=== PATIENT | male | born 1950 | race Caucasian/White ===

== ENCOUNTER 2016-10-05 09:04 | Emergency (ER) | payer MEDICARE ==
[2016-10-05] MEDS ORDERED: ACETAMINOPHEN IV (For NPO) 1,000 MG in EMPTY BAG 1 BAG IVPB STA (09:21)
[2016-10-05] MEDS ORDERED: KETOROLAC 30 MG/ML 1 ML VIAL IVP STA (09:21)
[2016-10-05] MEDS ORDERED: SODIUM CHLORIDE 0.9% 1,000 ML IV STA ×2 (09:21)
[2016-10-05] MEDS ORDERED: SODIUM CHLORIDE 0.9% 500 ML IV STA (09:21)
[2016-10-05 09:50] LABS: Basophils % (A) 1 %; CH 29.1; CHCM 35.9; Eosinophils % (A) 0 %; HCT 45.1 % (39.0-53.0); HDW 2.99; HGB 15.6 gm/dL (13.0-17.5); Luc # (Auto) 0.18; Luc % (Auto) 4; Lymphocytes # (A) 0.4 k/uL (1.0-4.8); Lymphocytes % (A) 8 %; MCH 28.2 pg (25.0-35.0); MCHC 34.6 g/dL (31.0-37.0); MCV 81.4 fL (80.0-100.0); Mean Platelet Volume 7.6; Monocytes # (A) 0.7 k/uL (0-1.0); Monocytes % (A) 14 %; Neutrophils % (A) 75 %; RBC 5.54 m/uL (4.30-5.90); RDW 13.8 % (11.5-15.5); WBC 5.3 k/uL (3.8-10.6); WBC (Perox) 5.24
--- NOTE | 2016-10-05 09:51 | ED ---
General Adult HPI - General Chief complaint: Chest Pain Stated complaint: chest pain Time Seen by Provider: 10/05/16 09:18 Source: patient, RN notes reviewed, old records reviewed Mode of arrival: wheelchair Limitations: no limitations - History of Present Illness Initial comments: This is a 65-year-old male the ER for evaluation. Patient has medical history associated with no other specific medical history of heart risk factors. Patient coming in with jaw pain left-sided jaw pain and not feeling well mild shortness of breath and cough. Patient has noted episodic fever as of late. Patient's last primary care doctor was sent ear under concern of the jaw pain. Patient states needs a tooth replacement, no history of high blood pressure not questionable diabetes. Patient denies any known sick contacts and no recent travel history. - Related Data Home Medications Medication Instructions Recorded Confirmed Cholecalciferol [Vitamin D3] 1,000 unit PO DAILY 10/05/16 10/05/16 Travoprost [Travatan Z 0.004%] 1 drop BOTH EYES HS 10/05/16 10/05/16 Previous Rx's Medication Instructions Recorded Acetaminophen Tab [Tylenol Tab] 500 mg PO Q4H PRN #30 tablet 10/05/16 Ibuprofen [Motrin] 800 mg PO Q6HR PRN #30 tab 10/05/16 Allergies Allergy/AdvReac Type Severity Reaction Status Date / Time Penicillins Allergy Unknown Verified 10/05/16 09:26 Review of Systems ROS Statement: Those systems with pertinent positive or pertinent negative responses have been documented in the HPI. ROS Other: All systems not noted in ROS Statement are negative. Past Medical History Past Medical History: Cancer Additional Past Medical History / Comment(s): PROSTATE CANCER, HEART MURMUR History of Any Multi-Drug Resistant Organisms: None Reported Past Surgical History: Prostate Surgery Additional Past Surgical History / Comment(s): PROSTATECTOMY Past Psychological History: No Psychological Hx Reported Smoking Status: Never smoker Past Alcohol Use History: None Reported Past Drug Use History: None Reported General Exam Limitations: no limitations General appearance: alert, in no apparent distress Head exam: Present: atraumatic, normocephalic, normal inspection Eye exam: Present: normal appearance, PERRL, EOMI. Absent: scleral icterus, conjunctival injection, periorbital swelling ENT exam: Present: normal exam, mucous membranes moist Neck exam: Present: normal inspection. Absent: tenderness, meningismus, lymphadenopathy Respiratory exam: Present: normal lung sounds bilaterally. Absent: respiratory distress, wheezes, rales, rhonchi, stridor Cardiovascular Exam: Present: regular rate, normal rhythm, normal heart sounds. Absent: systolic murmur, diastolic murmur, rubs, gallop, clicks GI/Abdominal exam: Present: soft, normal bowel sounds. Absent: distended, tenderness, guarding, rebound, rigid Extremities exam: Present: normal inspection, full ROM, normal capillary refill. Absent: tenderness, pedal edema, joint swelling, calf tenderness Back exam: Present: normal inspection Neurological exam: Present: alert, oriented X3, CN II-XII intact Psychiatric exam: Present: normal affect, normal mood Skin exam: Present: warm, dry, intact, normal color. Absent: rash Course Vital Signs 10/05/16 10/05/16 10/05/16 09:07 10:25 11:30 Temperature 101.2 F H 100.9 F H 100.1 F H Pulse Rate 63 53 L 52 L Respiratory 18 16 16 Rate Blood Pressure 167/75 141/65 134/61 O2 Sat by Pulse 98 100 95 Oximetry 10/05/16 12:53 Temperature 98.7 F Pulse Rate 54 L Respiratory 18 Rate Blood Pressure 122/58 O2 Sat by Pulse 98 Oximetry - Reevaluation(s) Reevaluation #1: Symptoms resolved with fever control EKG Findings - EKG Comments: EKG Findings:: EKG shows sinus rhythm at 66, MN 132, QRS 90, QTC 419 Medical Decision Making - Medical Decision Making 65 mL year for evaluation of chest pain, patient did, in doctor's office for chest pain cough and congestion. Patient denies significant stress of breath, state they're concerned about dropping relates that needing tooth infection removed, EKG lab work including troponin and x-ray are negative. Patient's positive for flu and will be discharged home - Lab Data Result diagrams: 10/05/16 09:30 10/05/16 09:30 Lab Results 10/05/16 10/05/16 10/05/16 Range/Units 09:30 09:30 09:30 WBC 5.3 (3.8-10.6) k/uL RBC 5.54 (4.30-5.90) m/uL Hgb 15.6 (13.0-17.5) gm/dL Hct 45.1 (39.0-53.0) % MCV 81.4 (80.0-100.0) fL MCH 28.2 (25.0-35.0) pg MCHC 34.6 (31.0-37.0) g/dL RDW 13.8 (11.5-15.5) % Plt Count 102 L (150-450) k/uL Neutrophils % 75 % Lymphocytes % 8 % Monocytes % 14 % Eosinophils % 0 % Basophils % 1 % Neutrophils # 4.0 (1.3-7.7) k/uL Lymphocytes # 0.4 L (1.0-4.8) k/uL Monocytes # 0.7 (0-1.0) k/uL Eosinophils # 0.0 (0-0.7) k/uL Basophils # 0.0 (0-0.2) k/uL PT (9.0-12.0) sec INR (<1.1) APTT (22.0-30.0) sec Sodium 139 (137-145) mmol/L Potassium 4.4 (3.5-5.1) mmol/L Chloride 101 (98-107) mmol/L Carbon Dioxide 27 (22-30) mmol/L Anion Gap 11 mmol/L BUN 13 (9-20) mg/dL Creatinine 1.12 (0.66-1.25) mg/dL Est GFR (MDRD) Af Amer >60 (>60 ml/min/1.73 sqM) Est GFR (MDRD) Non-Af >60 (>60 ml/min/1.73 sqM) Glucose 119 H (74-99) mg/dL Plasma Lactic Acid Tan (0.7-2.0) mmol/L Calcium 9.2 (8.4-10.2) mg/dL Phosphorus 3.1 (2.5-4.5) mg/dL Magnesium 2.0 (1.6-2.3) mg/dL Total Bilirubin 1.8 H (0.2-1.3) mg/dL AST 28 (17-59) U/L ALT 33 (21-72) U/L Alkaline Phosphatase 83 (38-126) U/L Total Creatine Kinase 92 (55-170) U/L CK-MB (CK-2) 1.1 (0.0-2.4) ng/mL CK-MB (CK-2) Rel Index 1.2 Troponin I <0.012 (0.000-0.034) ng/mL Total Protein 7.6 (6.3-8.2) g/dL Albumin 4.2 (3.5-5.0) g/dL Urine Color Urine Appearance (Clear) Urine pH (5.0-8.0) Ur Specific Krum (1.001-1.035) Urine Protein (Negative) Urine Glucose (UA) (Negative) Urine Ketones (Negative) Urine Blood (Negative) Urine Nitrite (Negative) Urine Bilirubin (Negative) Urine Urobilinogen (<2.0) mg/dL Ur Leukocyte Esterase (Negative) Urine RBC (0-5) /hpf Urine WBC (0-5) /hpf Urine Mucus (None) /hpf Influenza Type A RNA (Not Detectd) Influenza Type B (PCR) (Not Detectd) 10/05/16 10/05/16 10/05/16 Range/Units 09:30 09:30 10:11 WBC (3.8-10.6) k/uL RBC (4.30-5.90) m/uL Hgb (13.0-17.5) gm/dL Hct (39.0-53.0) % MCV (80.0-100.0) fL MCH (25.0-35.0) pg MCHC (31.0-37.0) g/dL RDW (11.5-15.5) % Plt Count (150-450) k/uL Neutrophils % % Lymphocytes % % Monocytes % % Eosinophils % % Basophils % % Neutrophils # (1.3-7.7) k/uL Lymphocytes # (1.0-4.8) k/uL Monocytes # (0-1.0) k/uL Eosinophils # (0-0.7) k/uL Basophils # (0-0.2) k/uL PT 11.3 (9.0-12.0) sec INR 1.1 (<1.1) APTT 25.5 (22.0-30.0) sec Sodium (137-145) mmol/L Potassium (3.5-5.1) mmol/L Chloride (98-107) mmol/L Carbon Dioxide (22-30) mmol/L Anion Gap mmol/L BUN (9-20) mg/dL Creatinine (0.66-1.25) mg/dL Est GFR (MDRD) Af Amer (>60 ml/min/1.73 sqM) Est GFR (MDRD) Non-Af (>60 ml/min/1.73 sqM) Glucose (74-99) mg/dL Plasma Lactic Acid Tan 1.2 (0.7-2.0) mmol/L Calcium (8.4-10.2) mg/dL Phosphorus (2.5-4.5) mg/dL Magnesium (1.6-2.3) mg/dL Total Bilirubin (0.2-1.3) mg/dL AST (17-59) U/L ALT (21-72) U/L Alkaline Phosphatase (38-126) U/L Total Creatine Kinase (55-170) U/L CK-MB (CK-2) (0.0-2.4) ng/mL CK-MB (CK-2) Rel Index Troponin I (0.000-0.034) ng/mL Total Protein (6.3-8.2) g/dL Albumin (3.5-5.0) g/dL Urine Color Yellow Urine Appearance Clear (Clear) Urine pH 7.0 (5.0-8.0) Ur Specific Krum 1.012 (1.001-1.035) Urine Protein Negative (Negative) Urine Glucose (UA) Negative (Negative) Urine Ketones Negative (Negative) Urine Blood Trace H (Negative) Urine Nitrite Negative (Negative) Urine Bilirubin Negative (Negative) Urine Urobilinogen <2.0 (<2.0) mg/dL Ur Leukocyte Esterase Negative (Negative) Urine RBC 2 (0-5) /hpf Urine WBC <1 (0-5) /hpf Urine Mucus Rare H (None) /hpf Influenza Type A RNA (Not Detectd) Influenza Type B (PCR) (Not Detectd) 10/05/16 Range/Units 11:05 WBC (3.8-10.6) k/uL RBC (4.30-5.90) m/uL Hgb (13.0-17.5) gm/dL Hct (39.0-53.0) % MCV (80.0-100.0) fL MCH (25.0-35.0) pg MCHC (31.0-37.0) g/dL RDW (11.5-15.5) % Plt Count (150-450) k/uL Neutrophils % % Lymphocytes % % Monocytes % % Eosinophils % % Basophils % % Neutrophils # (1.3-7.7) k/uL Lymphocytes # (1.0-4.8) k/uL Monocytes # (0-1.0) k/uL Eosinophils # (0-0.7) k/uL Basophils # (0-0.2) k/uL PT (9.0-12.0) sec INR (<1.1) APTT (22.0-30.0) sec Sodium (137-145) mmol/L Potassium (3.5-5.1) mmol/L Chloride (98-107) mmol/L Carbon Dioxide (22-30) mmol/L Anion Gap mmol/L BUN (9-20) mg/dL Creatinine (0.66-1.25) mg/dL Est GFR (MDRD) Af Amer (>60 ml/min/1.73 sqM) Est GFR (MDRD) Non-Af (>60 ml/min/1.73 sqM) Glucose (74-99) mg/dL Plasma Lactic Acid Tan (0.7-2.0) mmol/L Calcium (8.4-10.2) mg/dL Phosphorus (2.5-4.5) mg/dL Magnesium (1.6-2.3) mg/dL Total Bilirubin (0.2-1.3) mg/dL AST (17-59) U/L ALT (21-72) U/L Alkaline Phosphatase (38-126) U/L Total Creatine Kinase (55-170) U/L CK-MB (CK-2) (0.0-2.4) ng/mL CK-MB (CK-2) Rel Index Troponin I (0.000-0.034) ng/mL Total Protein (6.3-8.2) g/dL Albumin (3.5-5.0) g/dL Urine Color Urine Appearance (Clear) Urine pH (5.0-8.0) Ur Specific Krum (1.001-1.035) Urine Protein (Negative) Urine Glucose (UA) (Negative) Urine Ketones (Negative) Urine Blood (Negative) Urine Nitrite (Negative) Urine Bilirubin (Negative) Urine Urobilinogen (<2.0) mg/dL Ur Leukocyte Esterase (Negative) Urine RBC (0-5) /hpf Urine WBC (0-5) /hpf Urine Mucus (None) /hpf Influenza Type A RNA Not Detected (Not Detectd) Influenza Type B (PCR) Detected H (Not Detectd) - Radiology Data Radiology results: report reviewed (Chest x-ray is negative for acute disease), image reviewed Disposition Clinical Impression: Influenza B Disposition: HOME SELF-CARE Condition: Good Instructions: Influenza (ED) Prescriptions: Acetaminophen Tab [Tylenol Tab] 500 mg PO Q4H PRN #30 tablet PRN Reason: Fever Ibuprofen [Motrin] 800 mg PO Q6HR PRN #30 tab PRN Reason: Fever Referrals: Fernando Ibarra MD [Primary Care Provider] - 1-2 days
[2016-10-05 09:55] LABS: INR 1.1 (<1.1); Partial Thromboplastin Time 25.5 sec (22.0-30.0); Prothrombin Time 11.3 sec (9.0-12.0)
[2016-10-05 10:18] LABS: Creatine Kinase 92 U/L (55-170)
[2016-10-05 10:22] LABS: ALT 33 U/L (21-72); AST 28 U/L (17-59); Alkaline Phosphatase 83 U/L (38-126); Anion Gap 11 mmol/L; Blood Urea Nitrogen 13 mg/dL (9-20); Calcium 9.2 mg/dL (8.4-10.2); Carbon Dioxide 27 mmol/L (22-30); Chloride 101 mmol/L (98-107); Glucose 119 mg/dL (74-99); Non-African American GFR(MDRD) >60 (>60 ml/min/1.73 sqM); Phosphorous 3.1 mg/dL (2.5-4.5); Sodium 139 mmol/L (137-145); Total Bilirubin 1.8 mg/dL (0.2-1.3); Total Protein 7.6 g/dL (6.3-8.2)
[2016-10-05 10:23] LABS: Potassium 4.4 mmol/L (3.5-5.1)
--- NOTE | 2016-10-05 10:29 | XR ---
EXAMINATION TYPE: XR chest 2V DATE OF EXAM: 10/05/2016 10:25 AM COMPARISON: NONE HISTORY: Weakness per order. Chest pain and abnormal EKG per patient. TECHNIQUE: Frontal and lateral views of the chest are obtained. FINDINGS: There is no focal air space opacity, pleural effusion, or pneumothorax seen. The cardiac silhouette size is enlarged. The osseous structures are intact. IMPRESSION: Cardiomegaly without acute pulmonary process.
[2016-10-05 10:30] LABS: Creatine Kinase MB 1.1 ng/mL (0.0-2.4); Troponin I <0.012 ng/mL (0.000-0.034)
[2016-10-05 10:33] LABS: Appearance,Urine Clear (Clear); Bilirubin,Urine Negative (Negative); Glucose,Urine (UA) Negative (Negative); Ketones,Urine Negative (Negative); Leukocyte Esterase,Urine Negative (Negative); Mucus,Urine Rare /hpf; Nitrite,Urine Negative (Negative); Particle Count 1256; Protein,Urine Negative (Negative); RBC,Urine 2 /hpf (0-5); Specific Gravity,Urine 1.012 (1.001-1.035); UA Billing (MACRO vs. MICRO) MICRO; Urobilinogen,Urine <2.0 mg/dL (<2.0); WBC,Urine <1 /hpf (0-5)
[2016-10-05] MEDS ORDERED: DEXAMETHASONE SOD PHOSPHATE 10 MG/ML 1 ML VIAL IV STA (12:00)
[2016-10-05 12:56] VITALS: BP 122/58; PULSE 54; RESP 18; TEMP 98.7
== END 2016-10-05 12:56 | disposition home or self-care (01) ==
LOC: EC 09:04
DX: J10.1 Influenza due to other identified influenza virus with other respiratory manifestations (principal); R07.9 Chest pain, unspecified; R68.84 Jaw pain; Z79.899 Other long term (current) drug therapy; Z88.0 Allergy status to penicillin
CPT/HCPCS: 36415; 93005; 80053; 82550; 82553; 83605; 83735; 84100; 84484; 85025; 85610; 85730; 81001; 87040; 87086; 87502; 71020; 99285; 96374; 96375; 96361 ×2; J1100; J1885; J0131

== ENCOUNTER → 2016-11-08 | Outpatient (CLI) | payer MEDICARE ==
[2016-11-08 19:20] LABS: Blood Urea Nitrogen 20 mg/dL (9-20); Non-African American GFR(MDRD) >60 (>60 ml/min/1.73 sqM)
--- NOTE | 2016-11-08 20:28 | CT ---
EXAMINATION TYPE: CT ChestAbdPelvis w con DATE OF EXAM: 11/08/2016 8:04 PM COMPARISON: Abdomen pelvis CT scan 05/13/2015 HISTORY: complains of night sweating and occasional LLQ pain CT DLP: 1514.9 mGycm Automated exposure control for dose reduction was used. CONTRAST: CT scan of the chest, abdomen and pelvis is performed with Oral Contrast and with IV Contrast, patien t injected with 100 mL of Omnipaque 300. FINDINGS: The lungs are clear of infiltrate. There is a tiny 4 mm calcified subpleural granuloma in the lateral right mid lung field. There is no mediastinal adenopathy. There are no hilar masses. There is no ple ural effusion. There is no pericardial effusion. Thoracic aorta is atheromatous. There is no sign of aneurysm or dissection. The liver spleen pancreas gallbladder appear normal. Bile ducts are not dilated. There is no adrenal mass. There is a 2 cm cortical cyst on the posterior right kidney. There is no hydronephrosis. There is normal renal contrast opacification. There is no retroperitoneal adenopathy. There is no ascites. Appendix appears normal. There are surgical clips in the pelvis on the left side. There are multiple clips from prostate surgery. There is a 6 x 4 cm oval-shaped mass in the pelvis on the left side post erior to the left external iliac artery. I see no intestinal wall thickening. There are no dilated loops. There is no sign of a bowel obstruct ion. There is no ascites. Bladder distends smoothly. I see no bony destructive process. There is spon dylolysis of L5 on the left side without any significant spondylolisthesis. There are a few sigmoid diverticula. There is no evidence of diverticulitis. IMPRESSION: Mild atherosclerotic vascular disease. Oval-shaped low-density mass in the pelvis on the left side appears fairly stable compared to 015 and suggests a benign etiology. This could be a seroma or lymphocele. There is colonic diverticulosis without sign of diverticulitis. Stable right renal cyst. No significa nt abnormality seen within the chest.
== END ==
LOC: RADCTMAIN 18:38
PROVIDERS: ATTEND Internal Medicine
DX: I70.90 Unspecified atherosclerosis (principal); R19.09 Other intra-abdominal and pelvic swelling, mass and lump; K57.90 Diverticulosis of intestine, part unspecified, without perforation or abscess without bleeding; N28.1 Cyst of kidney, acquired; R61 Generalized hyperhidrosis
CPT/HCPCS: 82565; 84520; 71260; 74177; 36415; Q9967

== ENCOUNTER 2019-08-28 10:54 | Day surgery (SDC) | payer MEDICARE ==
[2019-08-25 14:24] VITALS: BMI 30.7
[~2019-08-28 10:54] MED LIST: LACTATED RINGERS 1,000 ML IV SCH; LIDOCAINE 1% 20 ML VIAL (10MG/ML) FOR IV START INTRADERMA PRN
[2019-08-28 11:24] VITALS: RESP 16; TEMP 97.1
[2019-08-28] MEDS ORDERED: PROPOFOL 10 MG/ML 20 ML VIAL IV ONE (12:19)
[2019-08-28] MEDS ORDERED: LIDOCAINE 1% INJ 10MG/ML (20 ML MDV) ONE (12:19)
--- NOTE | 2019-08-28 12:35 | P.PCN ---
Date of Procedure: 08/28/19 Procedure(s) Performed: BRIEF HISTORY: Patient is a 68-year-old pleasant male scheduled for an elective colonoscopy as a part of a for colon rectal neoplasia. His last colonoscopy was 10 years ago. PROCEDURE PERFORMED: Colonoscopy. PREOPERATIVE DIAGNOSIS: Screening for colon cancer. IV sedation per Anesthesia. PROCEDURE: After informed consent was obtained, the patient, was brought into the endoscopy unit. IV sedation was administered by Anesthesia under continuous monitoring. Digital rectal examination was normal. Initially the Olympus CF-160 flexible video colonoscope was then inserted in the rectum, gradually advanced into the cecum without any difficulty. Careful examination was performed as the scope was gradually being withdrawn. Ileocecal valve and the appendiceal orifice were visualized and appeared normal. Prep was excellent. Mucosa of the cecum, ascending colon, transverse colon, descending colon, sigmoid colon, and rectum appeared normal. Scattered sigmoid diverticulosis seen. Retroflexion was performed in the rectum and small internal hemorrhoids were seen. The patient tolerated the procedure well. IMPRESSION: Normal-appearing colon from rectum to cecum with no evidence of colorectal neoplasia . Scattered sigmoid diverticulosis. Small internal hemorrhoids RECOMMENDATIONS: Findings of this examination were discussed with the patient as well as his family. He was advised to have a repeat screening colonoscopy in 10 years.
[2019-08-28 12:43] VITALS: BP 102/51; PULSE 58
== END 2019-08-28 13:22 | disposition home or self-care (01) ==
LOC: ORWHC2ENDO 10:54
PROVIDERS: ATTEND Internal Medicine Gastroenterology
DX: Z12.11 Encounter for screening for malignant neoplasm of colon (principal); K57.30 Diverticulosis of large intestine without perforation or abscess without bleeding; K64.8 Other hemorrhoids; Z88.0 Allergy status to penicillin; Z85.46 Personal history of malignant neoplasm of prostate; Z90.79 Acquired absence of other genital organ(s)
CPT/HCPCS: J2001; J2704; G0121

== ENCOUNTER → 2022-12-22 | Outpatient (CLI) | payer MEDICARE ==
[2022-12-22 11:35] LABS: HCT 44.5 % (39.6-50.0); HGB 15.1 g/dL (13.0-17.0); MCH 28.5 pg (27.0-32.0); MCHC 33.9 g/dL (32.0-37.0); MCV 84.1 fL (80.0-97.0); Mean Platelet Volume 11.4 fL (9.5-12.2); NRBC Per 100 WBC 0 /100 WBCS (0.0-0.0); Platelet Count 108 X 10*3/uL (140-440); RBC 5.29 X 10*6/uL (4.40-5.60); RDW 13.2 % (11.5-14.5); WBC 5.15 X 10*3/uL (4.50-10.00)
[2022-12-22 11:39] LABS: African American GFR (CKD) 85.6 (60.0-200.0); Anion Gap 10.2 mmol/L (10.00-18.00); Blood Urea Nitrogen 16.7 mg/dL (9.0-27.0); Carbon Dioxide 23.8 mmol/L (20.0-27.5); Non-African American GFR(CKD) 73.8 (60.0-200.0)
== END | disposition home or self-care (01) ==
LOC: LABPAT 07:18
PROVIDERS: ATTEND Internal Medicine Interventional Cardiology
DX: Z01.812 Encounter for preprocedural laboratory examination (principal); I42.8 Other cardiomyopathies
CPT/HCPCS: 36415; 80051; 82565; 84520; 85027

== ENCOUNTER 2022-12-29 06:09 | Day surgery (SDC) | payer MEDICARE ==
[~2022-12-29 06:09] MED LIST changes: +ALPRAZolam 0.25 MG TAB PO PRN; +ALPRAZolam 0.5 MG TAB PO PRN; +ASPIRIN 325 MG TAB PO STA; +ATORVASTATIN 80 MG TAB PO STA; +HEPARIN SODIUM,PORCINE 10,000 UNIT in SODIUM CHLORIDE 0.9% 1,000 ML IRRIGATION PRN; +HEPARIN SODIUM,PORCINE 2,500 UNIT in SODIUM CHLORIDE 0.9% 250 ML IRRIGATION PRN; -LACTATED RINGERS 1,000 ML IV SCH; -LIDOCAINE 1% 20 ML VIAL (10MG/ML) FOR IV START INTRADERMA PRN; +NITROGLYCERIN SL TABS 0.4 MG TAB SUBLINGUAL PRN; +SODIUM CHLORIDE 0.9% 1,000 ML in EMPTY BAG 1 BAG IV SCH
[2022-12-29] MEDS ORDERED: SODIUM CHLORIDE 0.9% 1,000 ML IV ONE (06:31)
[2022-12-29 07:00] VITALS: RESP 16; TEMP 98
[2022-12-29] MEDS ORDERED: fentaNYL (PF) 50 MCG/ML 2 ML AMP ONE (07:30)
[2022-12-29] MEDS ORDERED: fentaNYL (PF) 50 MCG/1 ML VIAL IV ONE (07:53)
[2022-12-29] MEDS ORDERED: LIDOCAINE 1% INJ 10MG/ML (5 ML VIAL-PF) SQ ONE (07:56)
[2022-12-29] MEDS ORDERED: VERAPAMIL SYRINGE (5 MG/10 ML) INTRAARTER ONE (07:59)
[2022-12-29] MEDS ORDERED: HEPARIN SODIUM 1,000 UN/ML (10ML VL) IV ONE (08:00)
[2022-12-29] MEDS ORDERED: IOPAMIDOL-370 100ML BTL INJ ONE ×2 (08:09→08:11)
[2022-12-29] MEDS ORDERED: RX INFO: IV CONTRAST WAS GIVEN 1 EACH MISC MISCELLANE PRN (08:21)
--- NOTE | 2022-12-29 08:27 | P.CARDCATH ---
Date of Procedure: 12/29/22 Description of Procedure: Cardiac Catheterization: The patient is 72-year-old male with known history of hypertension and hyperlipidemia who had some symptoms of dyspnea and was found to have a cardiomyopathy of unknown etiology. Recommendations were made regarding cardiac catheterization, the risks and the complications were discussed with the patient who is in full understanding and agreement. Procedure Description: Patient was brought to technical laboratory asst in fasting semi-sedated state after receiving Fentanyl and Benadryl achieiving moderate conscious sedated state. Using Xylocaine Anesthesia and Seldinger technique, a 6-[place] sheath was introduced in the right radial artery . Subsequently, selective coronary angiography was performed using a 5-[place] 3.5 bend Clark catheter. Multiple views of the coronary artery including hemiaxial views were obtained. The 5-[place] pigtail catheter was used to cross the aortic valve and LVEDP was calculated. Left ventriculogram in the ROSAS view was performed. Following that, catheter and sheath were removed. Hemostasis was obtained with deployment of TR band . There was no immediate complication. Patient was returned to room in stable condition. Of note, the patient received a total of 5000 units of intravenous heparin as well as intra-arterial verapa mil. Findings: Left main: This is a large size vessel trifurcating into LAD, ramus intermedius, left circumflex, the left main has no high-grade stenosis LAD: This is a large size vessel, reaching to the apex, giving rise to a diagonal branch and mid segment. The LAD has no obstructive disease Left circumflex: This is a large nondominant vessel giving rise to 2 obtuse marginal branch the left circumflex and branches have no obstructive disease RCA: This is a dominant vessel bifurcating distally into PDA and PLV, the RCA has no evidence of obstructive disease Ramus intermedius: This vessel is moderate in caliber and has no evidence of obstructive disease Left Ventriculogram: Performed in the 30 ROSAS view revealed global hypokinesis with ejection fraction of 40-45% with arrhythmia induced mitral regurgitation Hemodynamics: There was no gradient across the aortic valve, LVEDP was 22-26 mmHg Conclusion: 1. Normal coronary arteries 2. Right dominance 3. Moderately impaired left ventricular systolic function 4. Elevated LVEDP Recommendations: I would recommend to maximize medical treatment and close follow-up of the LV systolic function, depending on his progress further recommendations will be made.. The findings and the recommendations were discussed with the patient and the family and they were in full understanding and agreement. Duration of sedation is 15 minutes.
[2022-12-29] MEDS ORDERED: SODIUM CHLORIDE 0.9% 1,000 ML IV SCH (08:30)
[2022-12-29] MEDS ORDERED: LOSARTAN 50 MG TAB PO SCH (09:00)
[2022-12-29] MEDS ORDERED: NON FORMULARY DRUG (Turmeric Root Extract [Turmeric] 500 MG Capsule) PO SCH (09:00)
[2022-12-29] MEDS ORDERED: BIMATOPROST BOTH EYES SCH (09:00)
[2022-12-29] MEDS ORDERED: NON FORMULARY DRUG (Cholecalciferol 1,000 UNIT Tab) PO SCH (09:00)
[2022-12-29 12:19] VITALS: BP 123/67; PULSE 57
[2022-12-30] MEDS ORDERED: ASPIRIN 81 MG PO SCH (09:00)
[2022-12-30] MEDS ORDERED: ATORVASTATIN 40 MG TAB PO SCH (09:00)
== END 2022-12-29 12:19 | disposition home or self-care (01) ==
LOC: CATHCVL 06:09
PROVIDERS: ATTEND Internal Medicine Interventional Cardiology
DX: I42.8 Other cardiomyopathies (principal); I25.10 Atherosclerotic heart disease of native coronary artery without angina pectoris; I10 Essential (primary) hypertension; E78.2 Mixed hyperlipidemia; Z79.82 Long term (current) use of aspirin; Z79.899 Other long term (current) drug therapy
CPT/HCPCS: 93458; C1769 ×2; C1894; J2001; J1644; Q9967; J3010

== ENCOUNTER → 2023-01-16 | Outpatient (CLI) | payer MEDICARE ==
[2023-01-16 15:47] LABS: Blood Urea Nitrogen 18.7 mg/dL (9.0-27.0); Calcium 9.6 mg/dL (8.7-10.3); Carbon Dioxide 23.9 mmol/L (21.6-31.8); Chloride 108 mmol/L (96-109); Glucose 127 mg/dL (70-110); Potassium 4.2 mmol/L (3.5-5.5); Sodium 143 mmol/L (135-145)
== END | disposition home or self-care (01) ==
LOC: LABWHC1 08:23
PROVIDERS: ATTEND Nurse Practitioner Adult Health
DX: I42.8 Other cardiomyopathies (principal)
CPT/HCPCS: 36415; 80048

== ENCOUNTER → 2023-03-21 | Outpatient (CLI) | payer MEDICARE ==
[2023-03-21 20:24] LABS: Anion Gap 9.8 mmol/L (4.00-12.00); Blood Urea Nitrogen 17.4 mg/dL (9.0-27.0); Carbon Dioxide 27.2 mmol/L (21.6-31.8); Potassium 4.8 mmol/L (3.5-5.5)
== END | disposition home or self-care (01) ==
LOC: LABWHC1 12:19
PROVIDERS: ATTEND Nurse Practitioner Adult Health
DX: I42.8 Other cardiomyopathies (principal)
CPT/HCPCS: 36415; 80051; 82550; 84520

== ENCOUNTER → 2023-05-03 | Outpatient (CLI) | payer MEDICARE ==
--- NOTE | 2023-05-04 22:37 | MR ---
EXAMINATION TYPE: MR cervical spine wo con DATE OF EXAM: 05/03/2023 9:09 PM CLINICAL INDICATION:Male, 72 years old with history of R29.898 OTH SYMPTOMS AND SIGNS INVOLVING THE M [facility]; PHH, Weakness right arm COMPARISON: None. TECHNIQUE: Multi planar, multi sequence imaging was performed utilizing: T1-weighted, T2-weighted, an d turbo inversion recovery imaging of the cervical spine. IV Contrast: cc (none if empty) FINDINGS: Alignment: The cervical vertebral bodies have preserved heights. Alignment is within normal limits gi kirby patient positioning. Bones: Scattered Modic endplate changes with osteophytes and disc space narrowing. Multilevel degener ative disc disease is noted and most pronounced at the C5-C7 vertebral levels. Cord: The spinal cord is unremarkable with regards to their signal intensity and morphology. Discs: Multilevel disc desiccation is present. C2-C3: No significant disc pathology. The spinal canal is patent. No neural foraminal stenosis. C3-C4: No significant disc pathology. The spinal canal is patent. Bilateral facet and uncovertebral joint arthropathy are present with moderate right and mild left neural foraminal stenosis. C4-C5: A disc osteophyte complex is present which minimally narrows the ventral subarachnoid space. Bilateral facet and uncovertebral joint arthropathy are present with mild bilateral neural foraminal stenosis. C5-C6: A disc osteophyte complex is present which minimally narrows the ventral subarachnoid space. Bilateral facet and uncovertebral joint arthropathy are present with moderate to severe right and mi ld left neural foraminal stenosis. C6-C7: No significant disc pathology. The spinal canal is patent. Bilateral facet and uncovertebral joint arthropathy are present with mild bilateral neural foraminal stenosis. C7-T1: No significant disc pathology. The spinal canal is patent. No neural foraminal stenosis. Other: None. IMPRESSION: 1. No evidence for disc herniation or significant spinal canal stenosis. 2. Mild to moderate disc degeneration with associated osteoarthritic changes with varying levels of n eural foraminal stenosis as described above..
--- NOTE | 2023-05-06 18:40 | MR ---
EXAMINATION TYPE: MR brain wo/w con DATE OF EXAM: 05/03/2023 9:10 PM CLINICAL INDICATION:Male, 72 years old with history of R29.898 OTH SYMPTOMS AND SIGNS INVOLVING THE M [facility]; PHH, Weakness right arm COMPARISON: None TECHNIQUE: Multi planar, multi sequence imaging was performed through the brain including: T1, T2, In version recovery, susceptibility weighted imaging and gradient echo imaging and Diffusion weighted im aging. The patient was then given intravenous contrast and multi planar, T1 fat-saturation images wer e obtained. IV Contrast: 9 cc Gadavist FINDINGS: Mild cerebral atrophy with proportional dilation of ventricular system. The najera-white junctions, ventricular system, basal cisterns appear unremarkable. Diffusion-weighted imaging shows no evidence of restricted diffusion to suggest acute/subacute infarct. Intracranial art erial flow voids are maintained. Midline structures show no abnormality. The susceptibility weighted images do not reveal any evidence for micro-hemorrhage. After administration of gadolinium, no abnorm al enhancement is seen. The bone marrow signal is within normal limits. Paranasal sinuses and mastoid air cells: No significant paranasal sinus disease. Visualized orbits: Orbital contents are intact. IMPRESSION: No evidence of intracranial mass, acute/subacute infarct, or abnormal enhancement.
== END | disposition home or self-care (01) ==
LOC: RADMRIMAIN 20:00
PROVIDERS: ATTEND Internal Medicine
DX: M47.812 Spondylosis without myelopathy or radiculopathy, cervical region (principal); M99.71 Connective tissue and disc stenosis of intervertebral foramina of cervical region; M50.30 Other cervical disc degeneration, unspecified cervical region; R29.898 Other symptoms and signs involving the musculoskeletal system
CPT/HCPCS: 70553; 72141; A9585

== ENCOUNTER → 2023-11-01 | Outpatient (CLI) | payer MEDICARE ==
--- NOTE | 2023-11-01 12:19 | US ---
EXAMINATION TYPE: US liver DATE OF EXAM: 11/01/2023 COMPARISON: CT CLINICAL INDICATION: Male, 72 years old with history of D69.6 THROMBOCYTOPENIA, UNSPECIFIED; Abnormal labs TECHNIQUE: Multiple sonographic images of the right upper quadrant are obtained. FINDINGS: EXAM MEASUREMENTS: Liver Length: 16.9 cm Gallbladder Wall: 0.2 cm CBD: 0.6 cm Right Kidney: 11.0 x 5.5 x 6.2 cm LONG WALL SHEAR OPERATOR NOTES: Pancreas: Obscured by bowel gas Liver: Visualized portions appeared wnl Gallbladder: Probable polyps ?calcified polyp vs. small gallstone at neck Evidence for sonographic Loya's sign: No CBD: wnl Right Kidney: Hypoechoic lesion lateral= 2.8 x 1.9 x 1.9 cm IMPRESSION: 1 probable gallbladder polyps versus adherent stones. 2. Probable cyst right kidney.
== END | disposition home or self-care (01) ==
LOC: RADUSWWP 09:23
PROVIDERS: ATTEND Internal Medicine
DX: D69.6 Thrombocytopenia, unspecified (principal); D75.1 Secondary polycythemia; N42.89 Other specified disorders of prostate; M12.9 Arthropathy, unspecified
CPT/HCPCS: 76705

== ENCOUNTER → 2024-02-28 | Outpatient (CLI) | payer MEDICARE | END | disposition home or self-care (01) | LOC: LABPRL 10:15 | PROVIDERS: ATTEND Nurse Practitioner Adult Health | DX: I42.8 Other cardiomyopathies | CPT/HCPCS: 80048; 83880 ==

== ENCOUNTER → 2024-10-22 | Outpatient (CLI) | payer MEDICARE ==
--- NOTE | 2024-10-22 13:08 | XR ---
EXAMINATION TYPE: XR chest 2V DATE OF EXAM: 10/22/2024 12:53 PM COMPARISON: Chest radiographs from 10/05/2016. CLINICAL INDICATION: Male, 73 years old with history of R22.2 LOCALIZED SWELLING, MASS AND LUMP, TRUN K; PHH TECHNIQUE: XR chest 2V Frontal and lateral views of the chest. FINDINGS: Lungs/Pleura: There is flattening of the diaphragm with increased lucency of the lungs. No evidence o f pneumothorax, pleural effusion or focal consolidation. Pulmonary vascularity: Unremarkable. Heart/mediastinum: Cardiomediastinal silhouette is unremarkable. Musculoskeletal: No acute osseous pathology. IMPRESSION: 1. No acute cardiopulmonary disease process. 2. COPD changes. [facility], , 10/22/2024 1:06 PM
== END | disposition home or self-care (01) ==
LOC: RADXRMAIN 12:36
PROVIDERS: ATTEND Internal Medicine
DX: J44.9 Chronic obstructive pulmonary disease, unspecified (principal)
CPT/HCPCS: 71046

== ENCOUNTER → 2024-11-04 | Outpatient (CLI) | payer MEDICARE ==
--- NOTE | 2024-11-04 13:29 | XR ---
EXAMINATION TYPE: XR ribs LT DATE OF EXAM: 11/04/2024 1:18 PM INDICATION: Patient age:Male; 73 years old; Reason for study: R07.81 Rib Pain; PHH. pain COMPARISON: Chest radiograph 10/22/2024, CT chest abdomen and pelvis 11/08/2016 TECHNIQUE: Frontal and oblique views of the left ribs. FINDINGS: Acute minimally displaced posterior left sixth rib fracture. Overall, the lungs are clear. No pneumothorax. The cardiac silhouette is enlarged in size. Atelectatic calcification of the aorta. The remaining osseous structures are intact. IMPRESSION: 1. Acute minimally displaced posterior left sixth rib fracture. No pneumothorax. 2. Cardiomegaly. [facility], , 11/04/2024 1:27 PM
== END | disposition home or self-care (01) ==
LOC: RADXRMAIN 13:01
PROVIDERS: ATTEND Internal Medicine
DX: S22.32XA Fracture of one rib, left side, initial encounter for closed fracture (principal); I51.7 Cardiomegaly